=== PATIENT | female | born 1950 | race Hispanic/Latino ===

== ENCOUNTER → 2023-07-11 | Outpatient (CLI) | payer MEDICARE ==
[2023-07-11 14:16] LABS: RAPID PLASMA REAGIN NONREACTIVE (NONREACTIVE)
== END | disposition home or self-care (01) ==
LOC: LAB 07-08 12:48
PROVIDERS: ATTEND Internal Medicine Cardiovascular Disease
DX: I10 Essential (primary) hypertension (principal); E03.9 Hypothyroidism, unspecified; E78.5 Hyperlipidemia, unspecified; K22.70 Barrett's esophagus without dysplasia; Z79.899 Other long term (current) drug therapy
CPT/HCPCS: 36415; 82533; 82607; 82747; 86592; 86701; 87390

== ENCOUNTER → 2023-08-12 | Outpatient (CLI) | payer MEDICARE ==
[2023-08-12 21:32] VITALS: PULSE 58; RESP 20
[2023-08-12 22:00] VITALS: PULSE 56; RESP 14
[2023-08-12 22:30] VITALS: PULSE 54; RESP 16
[2023-08-12 23:00] VITALS: PULSE 54; RESP 12
[2023-08-12 23:30] VITALS: PULSE 54; RESP 14
[2023-08-13] VITALS (11 sets, daily range): PULSE 52–60; RESP 10–16
== END | disposition home or self-care (01) ==
LOC: SLP 20:08 → EDUNIT# 20:30
PROVIDERS: ATTEND Internal Medicine Cardiovascular Disease
DX: G47.33 Obstructive sleep apnea (adult) (pediatric) (principal)
CPT/HCPCS: 95810

== ENCOUNTER → 2023-09-30 | Outpatient (CLI) | payer MEDICARE ==
[2023-08-28 21:57] VITALS: PULSE 70; RESP 12
[2023-08-28 22:30] VITALS: PULSE 68; RESP 14
[2023-08-28 23:00] VITALS: PULSE 64; RESP 14
[2023-08-28 23:30] VITALS: PULSE 64; RESP 16
[2023-08-29] VITALS (9 sets, daily range): PULSE 64–70; RESP 12–18
[2023-09-30 22:23] VITALS: PULSE 72; RESP 16
[2023-09-30 23:00] VITALS: PULSE 68; RESP 14
[2023-09-30 23:30] VITALS: PULSE 70; RESP 12
[2023-10-01] VITALS (10 sets, daily range): PULSE 64–72; RESP 10–16
== END | disposition home or self-care (01) ==
LOC: EDUNIT# 08-28 20:30 → SLP 08-28 20:33
PROVIDERS: ATTEND Internal Medicine Cardiovascular Disease
DX: G47.33 Obstructive sleep apnea (adult) (pediatric) (principal)
CPT/HCPCS: 95811

== ENCOUNTER → 2024-12-12 | Outpatient (CLI) | payer OTHER | END | disposition home or self-care (01) | LOC: LAB 09:25 | PROVIDERS: ATTEND Internal Medicine Cardiovascular Disease | DX: I10 Essential (primary) hypertension (principal) | CPT/HCPCS: 83835 ==

== ENCOUNTER → 2024-12-14 | Outpatient (CLI) | payer MEDICARE, OTHER ==
--- NOTE | 2024-12-14 09:38 | HMCIMG ---
US ART IN & VEIN OUT, US RENAL SONOGRAM HISTORY: Hypertension COMPARISON: None TECHNIQUE: Renal and renal arterial Doppler ultrasound study was performed. FINDINGS: The right kidney measures 9.9 x 4.2 x 4.9 cm. The left kidney measures 10.3 x 4 x 4.7 cm. No evidence of hydronephrosis is seen of either kidney. Peak systolic velocity of right renal artery is 120 cm/s, left renal artery is 115 cm/s, abdominal aorta is 111 cm/s. Right renal artery aortic ratio is 1.1. Left renal artery aortic ratio is 1.0. Normal arterial waveforms are seen of the renal arteries bilaterally. IMPRESSION: 1. No hydronephrosis is seen. Normal renal arterial Doppler ultrasound study.
[2024-12-14 10:55] LABS: ALBUMIN 3.9 g/dL (3.5-5.0); BILIRUBIN,TOTAL 0.9 mg/dL (0.2-1.0); CREATININE 0.9 mg/dL (0.5-1.0); POTASSIUM 4.6 mmol/L (3.5-5.1); TOTAL PROTEIN, SERUM 7.2 g/dL (6.0-8.3)
== END | disposition home or self-care (01) ==
LOC: RAH 08:39
PROVIDERS: ATTEND Internal Medicine Cardiovascular Disease
DX: I10 Essential (primary) hypertension (principal)
CPT/HCPCS: 36415; 76770; 80053; 93975

== ENCOUNTER → 2024-12-25 | Outpatient (CLI) | payer OTHER ==
[~2024-12-25] MED LIST: IOHEXOL-350 75 ML VIAL IV ONE
--- NOTE | 2024-12-25 10:37 | HMCIMG ---
CT ABDOMEN W/WO CONTRAST HISTORY: Essential pulmonary hypertension COMPARISON: None TECHNIQUE: Multiple sequential axial images of the abdomen were obtained from the dome of the diaphragm through iliac crests. Patient was given 75 cc of Omnipaque through intravenous route. Oral contrast was not given. FINDINGS: No pleural effusion is seen bilaterally. There is no evidence of parenchymal disease or pulmonary nodule of the visualized lower lungs. Degenerative changes are seen of the thoracolumbar spine. 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 Liver measured 15 cm. A small hiatal hernia is seen. The liver, spleen, adrenal glands and pancreas are unremarkable. There is no evidence of hydronephrosis bilaterally. No evidence of renal stone is seen. Fecal material is seen in the colon. There are normal-sized retroperitoneal and mesenteric lymph nodes. No ascites is seen. Atherosclerotic changes are present. IMPRESSION: 1. No acute finding. CT was performed with one or more following dose reduction techniques: automated exposure control, adjustment of the mA and kv according to patient's size, or use of a iterative reconstruction technique.
== END | disposition home or self-care (01) ==
LOC: RAH 08:13
PROVIDERS: ATTEND Internal Medicine Cardiovascular Disease
DX: K44.9 Diaphragmatic hernia without obstruction or gangrene (principal); I27.20 Pulmonary hypertension, unspecified; M47.815 Spondylosis without myelopathy or radiculopathy, thoracolumbar region; I10 Essential (primary) hypertension
CPT/HCPCS: 74170; Q9967

== ENCOUNTER → 2025-05-14 | Outpatient (CLI) | payer OTHER ==
[2025-05-14 11:35] LABS: CREATININE 1.0 mg/dL (0.5-1.0); GLOMERULAR FILTR. RATE CALC 59.0 mL/min (>90); GLUCOSE,RANDOM 113.0 mg/dL (70-105); SODIUM SERUM 143.0 mmol/L (136-145); UREA NITROGEN, BLOOD 23.0 mg/dL (7-18)
== END | disposition home or self-care (01) ==
LOC: LAB 10:25
PROVIDERS: ATTEND Internal Medicine
DX: I13.10 Hypertensive heart and chronic kidney disease without heart failure, with stage 1 through stage 4 chronic kidney disease, or unspecified chronic kidney disease (principal); N18.9 Chronic kidney disease, unspecified; E03.9 Hypothyroidism, unspecified
CPT/HCPCS: 36415; 80048; 84443